=== PATIENT | male | born 1980 | race Caucasian/White ===

== ENCOUNTER 2017-04-22 12:29 | Emergency (ER) | payer SELFPAY ==
[~2017-04-22] VITALS: Ht 185.4 cm; Wt 101.3 kg
[2017-04-22 12:37] VITALS: BP 133/74; PULSE 69; RESP 16; TEMP 97.1; O2SAT 97
--- NOTE | 2017-04-22 13:12 | PD ---
HPI Chief Complaint: Injury Time Seen by Provider: 12:50 Travel History International Travel<30 days: No Contact w/Intl Traveler<30days: No History of Present Illness HPI 36-year-old male with a puncture wound to the left hand after working with metal duct work today. States that he had a puncture to the hand but immediately removed the metal strand. Denies numbness, tingling, weakness, loss of sensation. States that he was able to work throughout the day. Denies any medical history and only 'allergic' to rapid administration of vancomycin. Last tetanus shot less than 5 years ago. Denies fever, chills, chest pain, SOB. Denies chronic medical issues or medication. 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 dorsal aspect of interdigital area with 2cm x2cm area of ecchymosis. HEAD: Atraumatic. Normocephalic. EYES: Pupils equal and round. No scleral icterus. No injection or drainage. ENT: No nasal bleeding or discharge. Mucous membranes pink and moist. NECK: Trachea midline. No JVD. CARDIOVASCULAR: Regular rate and rhythm. No murmur appreciated. RESPIRATORY: No accessory muscle use. Clear to auscultation. Breath sounds equal bilaterally. EXTREMITY: Left hand TTP to dorsal aspect interdigital to 2nd & 3rd MCPs. Small puncture site bleeding controlled, without exudate or erythema. Full range of motion in all joints. No joint swelling/injury. Normal opposition of thumb. Distal extremity neurovascularly intact. NEUROLOGICAL: Awake and alert. No obvious cranial nerve deficits. Motor grossly within normal limits. Normal speech. PSYCHIATRIC: Appropriate mood and affect; insight and judgment normal. Data Data Last Documented VS Vital Signs Date Time Temp Pulse Resp B/P (MAP) Pulse Ox O2 Delivery O2 Flow Rate FiO2 04/22/17 12:37 97.1 69 16 133/74 (93) 97 Orders Orders Hand, Complete ([id number]) (04/22/17 ) MDM Medical Decision Making Medical Screen Exam Complete: Yes Emergency Medical Condition: Yes Differential Diagnosis Left hand puncture wound versus foreign body versus contusion Narrative Course 36-year-old male here for evaluation of a puncture wound to his left hand that occurred earlier today. States he was working on [employer] duct work and a piece of metal punctured his left hand but he immediately removed the offending object. He developed increased pain and came to the emergency department. Tetanus within the last 4 years. Physical exam revealed full range of motion, mild edema to the dorsal interdigital aspect between the second and third MCP joints. Neurovascularly intact. X-ray without evidence of foreign body. Antibiotics prophylaxis. Avoid alcohol while on antibiotics. Return to emergency department if signs symptoms of infection, decrease sensation or motor. Pt understood and agreed. Diagnosis Primary Impression: Puncture wound Referrals: Hand Surgeon Primary Care Physician Additional Instructions: Take all antibiotics as prescribed. Keep area clean If you develop increased redness, swelling, or pus, return to the emergency department. Scripts Cephalexin (Keflex) 500 Mg Cap 500 MG PO Q6H for Infection for 10 Days, #40 CAP 0 Refills Prov: Gisselle Bunch MD 04/22/17 Disposition: 01 DISCHARGE HOME Condition: Stable Beverly Lorenzana Apr 22, 2017 13:12
[2017-04-22] MEDS ORDERED: CEPH-460 PO (13:13)
--- NOTE | 2017-04-22 13:22 | RADRPT ---
EXAM DATE/TIME: 04/22/2017 13:02 [facility] COMPARISON: No previous studies available for comparison. INDICATIONS : Puncture wound to 3rd & 4th digits of left hand. MEDICAL HISTORY : Hear murmur SURGICAL HISTORY : Appendectomy. Right knee. ENCOUNTER: Initial ACUITY: 1 day PAIN SCORE: 5/10 LOCATION: Left hand FINDINGS: Three view examination of the left hand demonstrates no soft tissue emphysema, radiopaque foreign bod y, dislocation, or fracture. The carpal bones appear intact. The interphalangeal and metacarpophal angeal joints are intact. Bony mineralization is normal. CONCLUSION: 1. No acute fracture or dislocation. 2. No subcutaneous emphysema or radiopaque foreign body. Dev Hernandez MD on April 22, 2017 at 13:19 Board Certified Radiologist. This report was verified electronically.
== END 2017-04-22 14:15 | disposition home or self-care (01) ==
LOC: PHEFT 12:29
DX: S61.432A Puncture wound without foreign body of left hand, initial encounter (principal)
CPT/HCPCS: 73130; 99283